=== PATIENT | female | born 1960 | race African-American/Black ===

== ENCOUNTER 2016-07-07 22:03 | Inpatient (IN) | payer MEDICAID ==
[~2016-07-07] VITALS: Ht 160 cm; Wt 56.4 kg
[~2016-07-07 22:03] MED LIST: ATACAND HCT 32-1 TAB PO; GLUCOPHAGE1000 MG PO; GLUCOTROL XL 5 M5 MG PO; HUMULIN R100 U/ML SQ; KEFLEX500 MG PO; LOPRESSOR50 MG PO; POTASSIUM99 M1 PO
[2016-07-07 23:00] LABS: BASOPHILS 0.4 % (0.0-2.0); EOSINOPHILS 2.3 % (0-7); HEMOGLOBIN 14.6 g/dL (12-16); IMMATURE GRANULOCYTES 0.4 % (0-5); LYMPHOCYTES 22.3 % (15-50); MCH 31.9 pg (26.0-34.0); MCHC 33.2 g/dL (31.0-37.0); MCV 96.3 fL (80.0-100.0); MEAN PLATELET VOLUME 12.2 fL (7.4-10.4); MONOCYTES 10.2 % (2-11); NEUTROPHILS 64.4 % (40-80); PLATELET COUNT 205 10x3/uL (130-400); RBC 4.57 10x6/uL (4.00-5.40); WBC 2.7 10x3/uL (4.8-10.8)
[2016-07-07 23:12] LABS: KETONE - SERUM NEGATIVE (NEGATIVE)
[2016-07-07 23:17] LABS: ALBUMIN 3.5 g/dL (3.4-5.0); ALKALINE PHOSPHATASE 82 U/L (46-116); ALT (SGPT) 20 U/L (10-68); BILIRUBIN - TOTAL 0.25 mg/dL (0.2-1.3); CALC OSMOLALITY 298 mosm/kg (275-300); CALCIUM 8.8 mg/dL (8.5-10.1); CARBON DIOXIDE 30.3 mmol/L (21.0-32.0); CHLORIDE - SERUM 105 mmol/L (98-107); POTASSIUM - SERUM 4.2 mmol/L (3.5-5.1); PROTEIN - SERUM 7.3 g/dL (6.4-8.2); SODIUM 140 mmol/L (136-145); UREA NITROGEN 14 mg/dL (7-18); eGFR NON AFRICAN AMERICAN 60 mL/min (90-120)
[2016-07-07 23:19] LABS: GLUCOSE 437 mg/dL (74-106)
[2016-07-08 01:53] LABS: APPEARANCE HAZY (CLEAR); BILIRUBIN NEGATIVE (NEGATIVE); COLOR YELLOW (YELLOW); GLUCOSE 1000 mg/dL (NEGATIVE); KETONE NEGATIVE (NEGATIVE); LEUKOCYTE ESTERASE 1+ (NEGATIVE); NITRITE NEGATIVE (NEGATIVE); PROTEIN NEGATIVE (NEGATIVE); UROBILINOGEN NORMAL (NORMAL)
[2016-07-08 01:56] LABS: BACTERIA MANY /hpf (NONE SEEN); EPITHELIAL CELLS 0-5 /hpf (0-5); RED CELLS - URINE 0-5 /hpf (0-5); WHITE CELLS - URINE 25-50 /hpf (0-5)
[2016-07-08 06:03] VITALS: BP 167/101; BMI 23.2
--- NOTE | 2016-07-08 07:53 | NUR ---
PT IS ALERT. ASSESSMENT DONE PER FLOWSHEET. NO OTHER NEEDS AT THIS TIME. WILL CONTINUE TO MONITOR.
[2016-07-08 08:00] VITALS: BP 165/99
[2016-07-08 12:00] VITALS: BP 164/93
--- NOTE | 2016-07-08 15:31 | NUR ---
DC TEACHING COMPLETE. NO OTHER NEEDS AT THIS TIME. WILL CONTINUE TO MONITOR.
[2016-07-08 16:00] VITALS: BP 131/85
[2016-07-08 20:38] VITALS: BP 128/81
[2016-07-09 00:11] VITALS: BP 115/72
[2016-07-09 04:40] VITALS: BP 179/83
[2016-07-09 06:39] LABS: BASOPHILS 0 % (0.0-2.0); EOSINOPHILS 0.2 % (0-7); HEMATOCRIT 42.8 % (36.0-48.0); HEMOGLOBIN 14.5 g/dL (12-16); IMMATURE GRANULOCYTES 0.2 % (0-5); LYMPHOCYTES 10.3 % (15-50); MCH 31.5 pg (26.0-34.0); MCHC 33.9 g/dL (31.0-37.0); MEAN PLATELET VOLUME 11.7 fL (7.4-10.4); MONOCYTES 5.3 % (2-11); PLATELET COUNT 222 10x3/uL (130-400); RDW 11.7 % (11.5-14.5)
[2016-07-09 06:53] LABS: WBC 5.6 10x3/uL (4.8-10.8)
[2016-07-09 07:06] LABS: CALC OSMOLALITY 274 mosm/kg (275-300); CARBON DIOXIDE 29.6 mmol/L (21.0-32.0); CHLORIDE - SERUM 100 mmol/L (98-107); CHOL - HDL RATIO 2.2 ratio (2.3-4.1); CHOLESTEROL, TOTAL 169 mg/dL (0-200); CREATININE - SERUM 0.8 mg/dL (0.6-1.3); HDL CHOLESTEROL 76 mg/dL (32-96); LDL CHOLESTEROL 79 mg/dL (0-100); SODIUM 136 mmol/L (136-145); THYROID STIMULATING HORMONE 1.63 uIU/mL (0.36-3.74); TRIGLYCERIDE 71 mg/dL (30-200); UREA NITROGEN 12 mg/dL (7-18); eGFR NON AFRICAN AMERICAN 78 mL/min (90-120)
[2016-07-09 07:07] LABS: GLUCOSE 158 mg/dL (74-106); HEMOGLOBIN A1C 9.4 % (4.8-6.0)
--- NOTE | 2016-07-09 07:37 | NUR ---
PT IS ALERT. ASSESSMENT DONE PER FLOWSHEET. NO OTHER NEEDS AT THIS TIME. WILL CONTINUE TO MONITOR.
[2016-07-09 08:00] VITALS: BP 149/91
[2016-07-09 12:00] VITALS: BP 152/94
[2016-07-09 16:00] VITALS: BP 137/87
--- NOTE | 2016-07-09 18:00 | NUR ---
NO SS OF DISTRESS AT THIS TIME. WILL CONTINUE TO MONITOR.
--- NOTE | 2016-07-09 19:15 | NUR ---
INITIAL ROUNDS MADE. PT SITTING UP IN BED WATCHING TV. DENIES NEEDS OR C/O AT THIS TIME. CALL LIGHT IN REACH. WILL CONT TO MONITOR.
[2016-07-09 20:00] VITALS: BP 164/87
[2016-07-10] VITALS: BP 145/85
--- NOTE | 2016-07-10 03:53 | NUR ---
RECYCLING PROGRAM MANAGER AT BEDSIDE FOR VS. NEEDS ADDRESSED. CALL LIGHT IN REACH. WILL CONT TO MONITOR.
[2016-07-10 04:00] VITALS: BP 159/103
--- NOTE | 2016-07-10 06:43 | NUR ---
PT HAS BEEN CONFUSED THROUGHOUT SHIFT. ATTEMPT TO REORIENT UNSUCCESSFUL. STATES "GOING HOME". AT BEDSIDE STATES SHE IS HALLUCINATING AND NEEDS A BED DOWNSTAIRS IN PSYCHE UNIT.
--- NOTE | 2016-07-10 07:30 | NUR ---
ASSESSMENT COMPLETED. RIGHT FOREARM SL. CONFUSED AND UNSTEADY ON HER FEET. CALLED PTS FAMILY AND ADVISED HER THAT THEY NEED TO HAVE SOMEONE COME SIT WITH PT. SHE SAID SHE WOULD HAVE SOMEONE COME. PT ADVISED TO STAY IN CHAIR OR BED AND TO CALL US WHEN SHE NEEDED UP. BED ALARM IN USE, BUT SHE DOESNT STAY IN BED. WILL MONITOR
--- NOTE | 2016-07-10 07:57 | NUR ---
PATIENT ROAMING HALLWAYS VERY CONFUSED. BOYFRIEND WITH PATIENT BUT DOES NOT HELP. VISITED WITH BOYFRIEND TO KEEPING PATIENT IN ROOM. OTHER FAMILY HAS BEEN CALLED. FALL PRECAUTIONS IN PLACE( MAT, BED ALARM, BRACELET).
[2016-07-10 08:32] VITALS: BP 151/93
--- NOTE | 2016-07-10 08:55 | NUR ---
ATIVAN 1MG IV PUSH GIVEN FOR ANTIETY. TO CT SCAN
--- NOTE | 2016-07-10 09:50 | NUR ---
PT BACK FROM CT SCAN. SEDATED. SR UP WITH CALL LIGHT IN REACH. SANDEE ALARM ON. RESP REG AND EVEN. WILL MONITOR
--- NOTE | 2016-07-10 11:44 | NUR ---
Patient Name: RICHARD ANDINO Admission Status: ER Accout number: [id number] Admission Date: 07-08-2016 : 1960 Admission Diagnosis: Attending: RAQUEL Current LOS: 2 Anticipated DC Date: TO BE DETERMINED Planned Disposition: TO BE DETERMINED Primary Insurance: [place] PRIVATE OPTIONS SELMA Discharge Planning Comments: CM RECEIVED ORDER FOR WALKER AT HOME; CM ATTEMPTED TO MEET WITH PT FOR INITIAL ASSESSMENT OF DISCHARGE NEEDS. PT WAS IN ROOM AND SLEEPING VERY HEAVILY AT APPROXIMATELY 1035 HOURS. CM NOTIFIED BY RT THAT PT HAD BEEN GIVEN A DOSE OF ATIVAN A SHORT TIME AGO. CM TO ATTEMPT ASSESSMENT OF PT AT A LATER TIME. Acetylene Torch Burner: Bayron Abbott
[2016-07-10 12:35] VITALS: BP 145/87
[2016-07-10 13:40] VITALS: Ht 160 cm; Wt 56.4 kg
--- NOTE | 2016-07-10 13:44 | NUR ---
PT SLEEPING, V/S STABLE. AROUSES BUT GOES RIGHT BACK TO SLEEP.
--- NOTE | 2016-07-10 15:13 | NUR ---
TALKING WITH CASE MJR. DENIES ANY NEEDS. CALL LIGHT IN REACH WITH SR UP. NO NEEDS VOICED
[2016-07-10 15:55] VITALS: BP 143/90
--- NOTE | 2016-07-10 16:44 | NUR ---
Patient Name: RICHARD ANDINO Admission Status: ER Accout number: [id number] Admission Date: 07-08-2016 : 1960 Admission Diagnosis: Attending: RAQUEL Current LOS: 2 Anticipated DC Date: Planned Disposition: Home Primary Insurance: [place] PRIVATE OPTIONS SELMA Discharge Planning Comments: * Is the patient Alert and Oriented? Yes 0 * How many steps to enter\exit or inside your home? 4 0 * PCP NONE 0 * Pharmacy [facility]. 0 * Preadmission Environment Home with Family 0 * ADLs Independent 0 * Equipment None 0 * Other Equipment [employer] - MEDICAL EQUIPMENT PROVIDER PREFERENCE 0 * List name and contact numbers for known caregivers / representatives who currently or will assist patient after discharge: FLOR VILLAGOMEZDIEGO, DTR, 0 * Community resources currently utilized None 0 * Please name any agencies selected above. NONE 0 * Additional services required to return to the preadmission environment? No 0 * Can the patient safely return to the preadmission environment? Yes 0 * Has this patient been hospitalized within the prior 30 days at any hospital? No 0 CM MET WITH PT IN ROOM TO DISCUSS DISCHARGE PLANNING AND NEEDS. PT REPORTS LIVING AT HOME INDEPENDENTLY WITH HER FRIEND, SREE. PT HAS NO MEDICAL EQUIPMENT AND NO OUTSIDE SERVICES ASSISTING IN THE HOME. CM DISCUSSED AVAILABILITY OF HOME HEALTH, REHAB SERVICES AND MEDICAL EQUIPMENT. PT DENIES DISCHARGE NEEDS, REPORTS HER DAUGHTER OR SREE WILL PICK HER UP FOR DISCHARGE HOME. CM DISCUSSED ORDER FOR WALKER, PT WOULD LIKE THE WALKER FROM [facility]. PT HAS NO PRIMARY CARE DOCTOR. CM PROVIDED AND DISCUSSED CONTACT INFORMATION FOR HER PEDIATRIC LPN AND SECURITY TECH. CM CALLED [facility], , SPOKE TO GREYSON AND FAXED REFERRAL TO [facility] AT [phone], REQUESTED HOSPITAL DELIVERY FOR THE WALKER. PT PLANS TO DISCHARGE HOME WITH HER FRIEND, SREE. PT HAS NO PRIMARY CARE DOCTOR AND WILL FOLLOW UP WITH HER PEDIATRIC LPN TO ASSIST IN FINDING PRIMARY CARE. Ornamental Iron Worker: Bayron Abbott
--- NOTE | 2016-07-10 18:12 | NUR ---
LYING QUIETLY WITH EYES CLOSED. WAKES EASILY, BUT FALLS RIGHT BACK TO SLEEP.. SR UP WITH CALL LIGHT IN REACH. WILL MONITOR
--- NOTE | 2016-07-10 19:59 | NUR ---
RECEIVED PT IN BED SNORING UNLABORED RESP SKIN W/D COLOR WNL NAD NOTED BED IN LOW POSITION CALL LIGHT IN REACH WILL CONTINUE TO MONITOR
[2016-07-10 21:37] VITALS: BP 135/83
--- NOTE | 2016-07-11 02:40 | NUR ---
ASSESSMENT COMPLETE, SLEEPING ON RIGHT SIDE, BED IS LOW, SRX2, BED ALARM ON, CALL LIGHT IN REACH, WILL CONTINUE TO MONITOR
[2016-07-11 05:54] VITALS: BP 171/102
[2016-07-11 06:02] VITALS: BP 148/88
[2016-07-11 08:00] VITALS: BP 144/72
--- NOTE | 2016-07-11 08:01 | NUR ---
ASSESSMENT COMPLETED. PT SLEEPING BUT AWAKES EASILY. RIGHT FA SL. CALL LIGHT IN REACH WITH SR UP. WILL MONITOR. PT CONFUSED AT TIMES. WILL MONITOR
[2016-07-11 08:23] LABS: IMMUNOGLOBULIN E 23 IU/mL (0-100)
[2016-07-11 12:00] VITALS: BP 145/87
--- NOTE | 2016-07-11 14:33 | NUR ---
AMBULATING WITH PT. GAIT UNSTEADY. BACK TO BEDSIDE CHAIR, WITH ALARM ON. WILL MONITOR.
--- NOTE | 2016-07-11 15:21 | NUR ---
Patient Name: RICHARD ANDINO Encounter No: [id number] : 1960 Primary Insurance: [place] PRIVATE OPTIONS SELMA Anticipated DC Date: Planned Disposition: Home DCP follow-up note: CM RECEIVED DETAILED WRITTEN ORDER FOR PT'S WALKER. CM PAGED AND SPOKE TO DR. BEAVER WHO INSTRUCTED CM TO PLACE ORDER ON FRONT OF CHART AND HE WILL SIGN IN THE MORNING. ORDER TO FRONT OF CHART FOR 'S SIGNATURE. CM SPOKE TO JACINTA MONREAL, PT'S PM TECHNICIAN WHO REPORTED THAT SHE HAS HAD PT ON SOCIAL WORK AND CASE MANAGEMENT SERVICES AND PT IS NON COMPLIANT AND PROBABLY WILL NOT AGREE TO FUTHER CASE MANAGEMENT WITH [employer]. JACINTA REPORTS SHE WILL SPEAK TO PT LATER TODAY IN ATTEMPT TO HELP. JACINTA REPORTS PT LIVES WITH SERE WHO ASSISTS PT WITH CARE NEEDED. CM MET WITH PT IN ROOM, [facility] HAD DELIVERED WALKER TO ROOM FOR DISCHARGE HOME. PT REPORTS PLAN TO DISCHARGE HOME WITH SREE WHO ASSISTS WITH HER CARE NEEDED. PT DENIES NEED OF REHAB SERVICES. PT HAS NO PRIMARY CARE DOCTOR TO SIGN ANY HOME HEALTH ORDERS. PT HAS CONTACT INFORMATION FOR HER PM TECHNICIAN AND PYROTECHNIST IF NEEDED. PT REPORTS SEEING A LITTLE BOY, ABOUT 2 YEARS OLD, CLIMBING ON HER BED AND WALKING AROUND THE ROOM. CM DID NOT SEE THE CHILD. PT SEEMED DISTRACTED AND POINTING, ASKING CM IF HE SAW THE BABY. PT'S SISTER, ,PATRICIA, IN ROOM WHO REPORTS THIS IS NOT NORMAL FOR PATIENTS BEHAVIOR. KELLY VERIFIED THAT PT LIVES WITH SREE WHO ASSISTS IN PT'S CARE. PT AND KELLY VERIFIED THAT VICENTE COLUNGA IS PT'S COUSIN AND IT IS OK TO SHARE INFORMATION WITH HER REGARDING PT'S CARE. VICENTE COLUNGA, . PT DENIES SEEING OTHER PEOPLE OTHER THAN THE BABY AND CM. CM NOTIFIED BEDSIDE NURSE. CM TO FAX WALKER ORDER TO [facility] AFTER OBTAINING DR. BEAVER'S SIGNATURE TOMORROW. Bayron Abbott, CASE MANAGEMENT
[2016-07-11 16:00] VITALS: BP 145/85
--- NOTE | 2016-07-11 18:02 | NUR ---
PT VERY AGGITATED AT THIS TIME UNABLE TO GIVE ATIVAN PT REFUSING VEWRY CONFUSED KNUCKLER DOING ONE ON ONE WITH PT UNTIL FAMILY CAN GET HERE
--- NOTE | 2016-07-11 19:15 | NUR ---
INITIAL ROUNDS MADE. PT SITTING UP IN BED WATCHING TV. NO NEEDS OR C/O VOICED AT THIS TIME. CALL LIGHT IN REACH. WILL CONT TO MONITOR. SEE FLOWSHEET FOR ASSESSMENT.
[2016-07-11 20:00] VITALS: BP 142/84
--- NOTE | 2016-07-12 04:01 | NUR ---
SCOREBOARD OPERATOR AT BEDSIDE FOR VS. NEEDS ADDRESSED AT THIS TIME. CALL LIGHT IN REACH. WILL CONT TO MONITOR.
[2016-07-12 08:00] VITALS: BP 126/79
--- NOTE | 2016-07-12 09:37 | NUR ---
Patient Name: RICHARD ANDINO Encounter No: [id number] : 1960 Primary Insurance: [place] PRIVATE OPTIONS SELMA Anticipated DC Date: Planned Disposition: Home DCP follow-up note: CM FAXED ORDER FOR WALKER TO DR. BEAVER'S OFFICE FOR SIGNATURE, FAX [phone]. WALKER HAS BEEN DELIVERED TO PT'S HOSPITAL ROOM. PT PLANS TO DISCHARGE HOME WITH HER FRIEND, SREE. CM TO FOLLOW AND ASSIST NEEDED. Bayron Abbott, CASE MANAGEMENT
--- NOTE | 2016-07-12 10:50 | NUR ---
UP TO CHAIR WITH BED ALRM ON.
[2016-07-12 12:00] VITALS: BP 117/86
--- NOTE | 2016-07-12 14:35 | NUR ---
AMBULATES HALLWAY WITH PT ASSIST.
[2016-07-12 16:09] VITALS: BP 114/76
[2016-07-12 20:00] VITALS: BP 110/69
--- NOTE | 2016-07-12 20:00 | NUR ---
PT UP IN BEDSIDE CHAIR. ALERT/DISORIENTED. HER BOYFRIEND HAS ARRIVED AND PLANS TO STAY THE NIGHT WITH HER. PIV TO RFA SALINE LOCKED. NONLABORED RESPIRATIONS ON ROOM AIR. SEE ASSESSMENT. CPOC.
--- NOTE | 2016-07-12 22:45 | NUR ---
PT AWAKE AND LYING BESIDE HER BOYFRIEND. ASKING WHEN SHE IS GOING HOME, WHERE IS SHE AT. DISORIENTED. POINTED OUT THAT BOYFRIEND IS WITH HER. HS MEDS GIVEN. MEDICATED WITH ATIVAN 1MG SIVP TO DECREASE RESTLESSNESS. FSBS 236, SLIDING SCALE INSULIN GIVEN. BOX ALARM IN PLACE. BOYFRIEND AT BEDSIDE.
--- NOTE | 2016-07-13 05:52 | NUR ---
PT WOULD NOT LET PROGRAM DIRECTOR AIR TALENT TAKE MIDNIGHT OR 0400 VITAL SIGNS. SHE DID ALLOW NURSE TO INFUSE AM IV ABT, BUT THEN IT WAS SALINE LOCKED SOON PIGGYBACK COMPLETED.
[2016-07-13 09:09] VITALS: BP 113/78
[2016-07-13] MEDS ORDERED: LEVAQUIN500 MG PO (10:03)
[2016-07-13] MEDS ORDERED: GLUCOTROL XL 1010 MG PO (10:08)
[2016-07-13] MEDS ORDERED: FLORANEX / LACT1 TAB PO (10:08)
[2016-07-13] MEDS ORDERED: PROTONIX40 MG PO (10:08)
[2016-07-13] MEDS ORDERED: PROAIR HFA8.5 GM INH (10:08)
[2016-07-13] MEDS ORDERED: FLUTICASONE PRO16 GM NASAL (10:10)
[2016-07-13] MEDS ORDERED: STERAPRED DS 1010 MG PO (10:18)
[2016-07-13 12:29] VITALS: BP 132/83
--- NOTE | 2016-07-13 15:11 | NUR ---
DISCHARGE PAPERS SIGNED AND TEACHING PROVIDED. PT SEEMS COGNITIVELY DELAYED BUT VERBALIZED UNDERSTANDING AND HER SPOUSE IS ON THE WAY TO PICK HER UP. D/C PTS R.FA PIV WITH CATHETER TIP FULLY INTACT. PT DENIES ANY FURTHER NEEDS AT THIS TIME. CL IN REACH, WILL CTM.
--- NOTE | 2016-07-14 10:04 | NUR ---
LATE ENTRY FROM 07/13/16 AT 1454 PM FROM CRISTOBAL, RN, CM: Patient Name: RICHARD ANDINO Encounter No: [id number] : 1960 Primary Insurance: [place] PRIVATE OPTIONS SELMA Anticipated DC Date: 07-13-2016 Planned Disposition: Home DCP follow-up note: CM MET WITH PATIENT REGARDING DC PLAN. SHE WAS ORIENTED X3 AND ABLE TO ANSWER ALL QUESTIONS CORRECTLY. SHE STATED SHE WILL GO HOME WITH HER SO SREE AND HE WILL DRIVE HER HOME AT DC. SHE STATED WALKER WAS DELIVERED TO HER ROOM AND THAT SHE HAS HOME OXYGEN. WE DISCUSSED HH SERVICES AND THAT DR BEAVER ENTERED ORDER FOR HH. SHE STATED THAT SHE WOULD LIKE TO "HOLD OFF AT THIS TIME". STATED SHE HAS HAD "HOME NURSE BEFORE" AND THAT SHE HAS A "PUPPY THAT BITES AND HAS BIT HOME NURSE BEFORE". ROSEMARIE PLACED CALL TO PT'S SISTER TO INFORM OF DC. SHE AGREED THAT SREE WILL DRIVE HER HOME AND THAT PRIMARY RN HAD CALLED HER TO INFORM OF DC ORDERS. ROSEMARIE PLACED CALL TO JACINTA MONREAL CM WITH [facility], TO INFORM OF DC ORDER AND THAT PT REFUSED HH SERVICES SO THAT SHE CAN FOLLOW UP WITH PATIENT ONCE SHE IS HOME TO ASSESS FOR FUTURE NEEDS. PT VOICED NO DC NEEDS. Ana Ibarra RN, CM
== END 2016-07-13 15:39 | disposition home or self-care (01) | DRG 191 ==
LOC: D.ER 22:03 → D.M2 07-08 04:54
PROVIDERS: Family Medicine; Internal Medicine Pulmonary Disease; Nurse Practitioner Acute Care; ADMIT Family Medicine
DX: J44.1 Chronic obstructive pulmonary disease with (acute) exacerbation (principal); I69.954 Hemiplegia and hemiparesis following unspecified cerebrovascular disease affecting left non-dominant side; N39.0 Urinary tract infection, site not specified; J45.909 Unspecified asthma, uncomplicated; R55 Syncope and collapse; W19.XXXA Unspecified fall, initial encounter; Z74.09 Other reduced mobility; E11.65 Type 2 diabetes mellitus with hyperglycemia; Z79.4 Long term (current) use of insulin; B96.20 Unspecified Escherichia coli [E. coli] as the cause of diseases classified elsewhere; I10 Essential (primary) hypertension; G47.33 Obstructive sleep apnea (adult) (pediatric); R91.1 Solitary pulmonary nodule; Z72.89 Other problems related to lifestyle; R41.0 Disorientation, unspecified; R06.1 Stridor; Z72.0 Tobacco use

== ENCOUNTER 2017-05-16 12:56 | Emergency (ER) | payer MEDICAID ==
[2016-07-10 13:40] VITALS: BMI 22.5
[~2017-05-16 12:56] MED LIST changes: +FLORANEX / LACT1 TAB PO; +FLUTICASONE PRO16 GM NASAL; +GLUCOTROL XL 1010 MG PO; +LEVAQUIN500 MG PO; +PROAIR HFA8.5 GM INH; +PROTONIX40 MG PO; +STERAPRED DS 1010 MG PO
[2017-05-16 14:20] LABS: BASOPHILS 0.2 % (0-2); EOSINOPHILS 0.5 % (0-7); HEMATOCRIT 48.5 % (36.0-48.0); HEMOGLOBIN 15.9 g/dL (12-16); IMMATURE GRANULOCYTES 0.5 % (0-5); LYMPHOCYTES 9.4 % (15-50); MCH 31.5 pg (26.0-34.0); MCHC 32.8 g/dL (31.0-37.0); MEAN PLATELET VOLUME 11.9 fL (7.4-10.4); MONOCYTES 8.8 % (2-11); NEUTROPHILS 80.6 % (40-80); PLATELET COUNT 182 10x3/uL (130-400); RBC 5.05 10x6/uL (4.00-5.40); RDW 11.8 % (11.5-14.5); WBC 5.6 10x3/uL (4.8-10.8)
[2017-05-16 15:12] LABS: ALKALINE PHOSPHATASE 108 U/L (46-116); BILIRUBIN - TOTAL 0.42 mg/dL (0.2-1.3); CARBON DIOXIDE 31.3 mmol/L (21.0-32.0); CHLORIDE - SERUM 99 mmol/L (98-107); POTASSIUM - SERUM 4.4 mmol/L (3.5-5.1); PROTEIN - SERUM 7.4 g/dL (6.4-8.2); SODIUM 138 mmol/L (136-145); UREA NITROGEN 4 mg/dL (7-18)
[2017-05-16 15:31] LABS: CALC OSMOLALITY 272 mosm/kg (275-300); GLUCOSE 93 mg/dL (74-106)
[2017-05-16 15:32] LABS: ALT (SGPT) 4 U/L (10-68); eGFR NON AFRICAN AMERICAN 60 mL/min (90-120)
== END 2017-05-16 16:55 | disposition home or self-care (01) ==
LOC: D.ER 12:56
PROVIDERS: Emergency Medicine
DX: I10 Essential (primary) hypertension (principal); E11.9 Type 2 diabetes mellitus without complications

== ENCOUNTER 2020-07-23 13:02 | Inpatient (IN) | payer MEDICAID ==
[~2020-07-23] VITALS: Ht 160 cm; Wt 65.8 kg
[2020-07-23 13:31] LABS: BASOPHILS 0.2 % (0-2); HEMATOCRIT 48.1 % (36.0-48.0); HEMOGLOBIN 13.9 g/dL (12-16); IMMATURE GRANULOCYTES 0.5 % (0-5); LYMPHOCYTE ABS# 1.32 10x3/uL (1.18-3.74); LYMPHOCYTES 20.6 % (15-50); MCH 31.8 pg (26.0-34.0); MCHC 28.9 g/dL (31.0-37.0); MCV 110.1 fL (80.0-100.0); MEAN PLATELET VOLUME 14.5 fL (7.4-10.4); MONOCYTES 8.7 % (2-11); PLATELET COUNT 192 10x3/uL (130-400); RBC 4.37 10x6/uL (4.00-5.40); RDW 15.8 % (11.5-14.5); WBC 6.4 10x3/uL (4.8-10.8)
[2020-07-23 13:36] LABS: BILIRUBIN NEGATIVE (NEGATIVE); KETONE NEGATIVE (NEGATIVE); NITRITE NEGATIVE (NEGATIVE); UROBILINOGEN NORMAL mg/dL (< 2)
[2020-07-23 13:37] LABS: BACTERIA MODERATE HPF (NONE SEEN); SQUAMOUS EPITHELIAL 0-5 HPF (0-4); WHITE CELLS - URINE 25-50 HPF (0-4)
[2020-07-23 13:50] LABS: APTT 25.4 SECONDS (22.8-39.4); INR 1.1 (0.85-1.17); PROTIME 13.2 SECONDS (11.6-15.0)
[2020-07-23 13:52] LABS: D-DIMER-QUANTITATIVE 1.03 ug/mLFEU (0.20-0.54)
[2020-07-23 14:00] LABS: ALBUMIN 2.4 g/dL (3.4-5.0); ALKALINE PHOSPHATASE 109 U/L (30-120); ALT (SGPT) 47 U/L (10-68); BILIRUBIN - TOTAL 0.26 mg/dL (0.2-1.3); CALCIUM 8.6 mg/dL (8.5-10.1); CARBON DIOXIDE 35.2 mmol/L (21.0-32.0); CKMB 0.5 U/L (0.0-3.6); CREATINE KINASE 365 UL (21-215); MAGNESIUM - SERUM 2.5 mg/dL (1.8-2.4); POTASSIUM - SERUM 4.2 mmol/L (3.5-5.1); PRO BNP 73 pg/mL (0-125); SODIUM 154 mmol/L (136-145); TROPONIN-I < 0.017 ng/mL (0.000-0.060); UREA NITROGEN 54 mg/dL (7-18); eGFR NON AFRICAN AMERICAN 59 mL/min (90-120)
[2020-07-23 14:01] LABS: CALC OSMOLALITY 331 mosm/kg (275-300); GLUCOSE 309 mg/dL (74-106)
[2020-07-23 14:02] LABS: CHLORIDE - SERUM 116 mmol/L (98-107)
--- NOTE | 2020-07-23 14:03 | NUR ---
CRITICAL LAB: CHLORIDE [address] DR HARRIS AND TAM RENEE NOTIFIED
--- NOTE | 2020-07-23 16:17 | NUR ---
CALLED REPORT TO JENNIFER AT [phone]. ALL QUESTIONS ANSWERED.
[2020-07-23] MEDS ORDERED: MELATONIN 3 MG1 TAB PO (17:36)
[2020-07-23] MEDS ORDERED: LANTUS INS100 UNITS/ SC ×2 (17:38→17:39)
[2020-07-23] MEDS ORDERED: ZOFRAN4 MG PO (17:40)
[2020-07-23] MEDS ORDERED: LOPRESSOR25 MG PO (17:41)
[2020-07-23] MEDS ORDERED: ATIVAN1 MG PO (17:43)
[2020-07-23] MEDS ORDERED: ULTRAM50 MG PO (17:44)
[2020-07-23] MEDS ORDERED: CELEXA20 MG PO (17:52)
[2020-07-23 18:08] VITALS: BP 102/65; BMI 25.7
[2020-07-23] MEDS ORDERED: GLUCERNA 1.5 C237 M1 GT (18:40)
--- NOTE | 2020-07-23 19:11 | NUR ---
LETHARGIC WITH EXPRESSIVE APHASIA. SKIN INTACT WITH ERRYTHEMA NOTED TO BILATERAL TOES WITH ELONGATED TOE NAILS NOTED. PEG TUBE INTACT TO ABDOMEN WITH NO S/S OF INFECTION NOTED. LOTION APPLIED TO SKIN WITH FALL PRECAUTIONS IN PLACE.
--- NOTE | 2020-07-23 19:45 | NUR ---
RECEIVED BEDSIDE REPORT. PT LAYING IN BED ORIENTATED TO SELF ONLY, GARBLED SPEECH. BILAT LOWER EXTREM CONTRACTURES. PEG TUBE IN PLACE. BEDFAST, TOTAL CARE. BED ALARM ON, CL IN REACH. WILL CONTINUE TO MONITOR.
[2020-07-23 21:24] VITALS: BP 96/67
--- NOTE | 2020-07-23 21:30 | NUR ---
ASSISTED PT WITH BED BATH. CHANGED DRSG TO PEG TUBE AND INITIATED TUBE FEED. INSERTED 22G PIV INTO RIGHT FOREARM X1 ATTEMPT, FLUSHES WELL WITH GOOD RETURN. HOSPITALITY TEAM MEMBER ASSISTED WITH ORAL CARE. PT TOLERATED WELL. BED LOW, ALARM ON, CL IN REACH.
[2020-07-24 05:46] VITALS: BP 114/55
[2020-07-24 06:44] LABS: ALBUMIN 2.2 g/dL (3.4-5.0); ALKALINE PHOSPHATASE 98 U/L (30-120); ALT (SGPT) 38 U/L (10-68); BILIRUBIN - TOTAL 0.16 mg/dL (0.2-1.3); CALCIUM 8.2 mg/dL (8.5-10.1); CARBON DIOXIDE 32.8 mmol/L (21.0-32.0); CKMB 0.6 U/L (0.0-3.6); CREATININE - SERUM 0.9 mg/dL (0.6-1.3); GLUCOSE 307 mg/dL (74-106); POTASSIUM - SERUM 4.2 mmol/L (3.5-5.1); PROTEIN - SERUM 6.5 g/dL (6.4-8.2); SODIUM 157 mmol/L (136-145); TROPONIN-I < 0.017 ng/mL (0.000-0.060); eGFR NON AFRICAN AMERICAN 67 mL/min (90-120)
[2020-07-24 06:55] LABS: CALC OSMOLALITY 332 mosm/kg (275-300); UREA NITROGEN 40 mg/dL (7-18)
[2020-07-24 06:56] LABS: CHLORIDE - SERUM 121 mmol/L (98-107); CREATINE KINASE 259 UL (21-215)
[2020-07-24 09:15] VITALS: BP 105/68
[2020-07-24 09:18] LABS: BASOPHILS 0.2 % (0-2); EOSINOPHILS 4.2 % (0-7); HEMATOCRIT 45.5 % (36.0-48.0); HEMOGLOBIN 13.3 g/dL (12-16); IMMATURE GRANULOCYTES 0.2 % (0-5); LYMPHOCYTE ABS# 1.33 10x3/uL (1.18-3.74); LYMPHOCYTES 23.5 % (15-50); MCH 32.3 pg (26.0-34.0); MCHC 29.2 g/dL (31.0-37.0); MCV 110.4 fL (80.0-100.0); MONOCYTES 16.1 % (2-11); NEUTROPHIL ABS# 3.16 10x3/uL (1.56-6.13); NEUTROPHILS 55.8 % (40-80); PLATELET COUNT 138 10x3/uL (130-400); RBC 4.12 10x6/uL (4.00-5.40); RDW 15.4 % (11.5-14.5); WBC 5.7 10x3/uL (4.8-10.8)
[2020-07-24 13:50] VITALS: BP 117/67
[2020-07-24 14:36] VITALS: Ht 160 cm; Wt 65.8 kg
[2020-07-24 18:34] VITALS: BP 116/64
--- NOTE | 2020-07-24 19:44 | NUR ---
PATIENT RESTING IN BED WITH NO S/S OF DISTRESS AND DENIES NEEDS AT THIS TIME. BED IN LOWEST POSITION AND CALL LIGHT IN REACH. IV INFUSING TO LEFT FA. NO REDNESS, SWELLING, OR PAIN NOTED. ENCOURAGED PATIENT TO CALL WITH NEEDS.
[2020-07-24 20:00] VITALS: BP 106/70
--- NOTE | 2020-07-24 20:33 | NUR ---
ADMINISTERED MEDS PER ORDERS. PATIENT JUAN MIGUEL WELL. ENCOURAGED TO CALL WITH NEEDS.
[2020-07-25] VITALS: BP 108/63
--- NOTE | 2020-07-25 01:00 | NUR ---
CHANGED PATIENT'S TUBE FEEDING BAGS
[2020-07-25 04:00] VITALS: BP 105/74
[2020-07-25 07:28] LABS: BASOPHILS 0.2 % (0-2); EOSINOPHILS 3.9 % (0-7); HEMATOCRIT 43.3 % (36.0-48.0); HEMOGLOBIN 12.6 g/dL (12-16); IMMATURE GRANULOCYTES 0.2 % (0-5); LYMPHOCYTE ABS# 0.95 10x3/uL (1.18-3.74); LYMPHOCYTES 20.3 % (15-50); MCH 31.9 pg (26.0-34.0); MCHC 29.1 g/dL (31.0-37.0); MCV 109.6 fL (80.0-100.0); MEAN PLATELET VOLUME 14.4 fL (7.4-10.4); MONOCYTES 10.9 % (2-11); NEUTROPHIL ABS# 3.01 10x3/uL (1.56-6.13); NEUTROPHILS 64.5 % (40-80); RBC 3.95 10x6/uL (4.00-5.40); WBC 4.7 10x3/uL (4.8-10.8)
[2020-07-25 07:31] LABS: PLATELET COUNT 170 10x3/uL (130-400)
[2020-07-25 07:53] LABS: ALBUMIN 2.4 g/dL (3.4-5.0); ALKALINE PHOSPHATASE 111 U/L (30-120); ALT (SGPT) 36 U/L (10-68); BILIRUBIN - TOTAL 0.14 mg/dL (0.2-1.3); CALCIUM 8.6 mg/dL (8.5-10.1); CARBON DIOXIDE 32.5 mmol/L (21.0-32.0); CREATININE - SERUM 0.8 mg/dL (0.6-1.3); POTASSIUM - SERUM 4.2 mmol/L (3.5-5.1); PROTEIN - SERUM 6.8 g/dL (6.4-8.2); SODIUM 153 mmol/L (136-145); UREA NITROGEN 31 mg/dL (7-18); eGFR NON AFRICAN AMERICAN 77 mL/min (90-120)
[2020-07-25 07:55] LABS: CALC OSMOLALITY 318 mosm/kg (275-300); GLUCOSE 250 mg/dL (74-106)
[2020-07-25 07:56] LABS: CHLORIDE - SERUM 117 mmol/L (98-107)
--- NOTE | 2020-07-25 09:20 | NUR ---
GAVE PATIENT MEDS THROUGH PEG TUBE AT THIS TIME. FLUSHES WITH NO PROBLEMS. RESIDUAL 0 ML. IV INTACT. CALL LIGHT WITHIN REACH.
[2020-07-25 10:07] VITALS: BP 128/76
--- NOTE | 2020-07-25 12:30 | NUR ---
PATIENT IN BED WITH NO COMPLAINTS. CHANGED AND REPOSITIONED. RESIDUAL 0 ML AT THIS TIME. BSCDS ON AND WORKING. CALL LIGHT WITHIN REACH.
[2020-07-25 18:03] VITALS: BP 142/77
--- NOTE | 2020-07-25 18:54 | NUR ---
RESIDUAL IS 0 ML AT THIS TIME. PATIENT IN BED WITH EYES OPEN. IV INTACT. PEG INTACT. CALL LIGHT WITHIN REACH.
[2020-07-25 20:00] VITALS: BP 134/83
[2020-07-26 00:27] VITALS: BP 121/76
--- NOTE | 2020-07-26 03:00 | NUR ---
I have reviewed this patient and I concur with the Shift Assessment completed by the Licensed Practical Nurse today this shift.
[2020-07-26 04:00] VITALS: BP 119/53
[2020-07-26 06:25] LABS: BASOPHILS 0.1 % (0-2); EOSINOPHILS 0.6 % (0-7); HEMATOCRIT 46.6 % (36.0-48.0); HEMOGLOBIN 13.9 g/dL (12-16); IMMATURE GRANULOCYTES 0.9 % (0-5); LYMPHOCYTE ABS# 1.18 10x3/uL (1.18-3.74); LYMPHOCYTES 13.4 % (15-50); MCH 32.4 pg (26.0-34.0); MCHC 29.8 g/dL (31.0-37.0); MCV 108.6 fL (80.0-100.0); MEAN PLATELET VOLUME 14.7 fL (7.4-10.4); NEUTROPHIL ABS# 6.69 10x3/uL (1.56-6.13); PLATELET COUNT 159 10x3/uL (130-400); RBC 4.29 10x6/uL (4.00-5.40); RDW 15.1 % (11.5-14.5)
[2020-07-26 06:27] LABS: ALBUMIN 2.5 g/dL (3.4-5.0); ANION GAP 13.2 mmol/L (8-16); BILIRUBIN - TOTAL 0.16 mg/dL (0.2-1.3); CARBON DIOXIDE 28.2 mmol/L (21.0-32.0); CREATININE - SERUM 0.9 mg/dL (0.6-1.3); POTASSIUM - SERUM 4.4 mmol/L (3.5-5.1); PROTEIN - SERUM 7.4 g/dL (6.4-8.2); WBC 8.8 10x3/uL (4.8-10.8)
[2020-07-26 08:35] VITALS: BP 136/77
--- NOTE | 2020-07-26 09:02 | NUR ---
PATIENT IS WITHOUT SIGNS OF DISTRESS.DOOR OPEN
--- NOTE | 2020-07-26 10:10 | NUR ---
PATIENT BLOOD SUGAR IS 411, CALLED DR CHANG, PATIENT HAS D5 RUNNING ASKED TO DC. PATIENT NOW HAS NS AT 50ML/HR. C/O ABD PAIN, CLEANED PEG AREA AND PLACED WARM PACK ON PATIENT. ZACARIAS WITH PLAN OF CARE
--- NOTE | 2020-07-26 11:43 | NUR ---
ADMINISTER 12U OF INSULIN PER SLIDING SCALE. PATIENT BLOOD SUGAR IMPROVING, ASSISTED PROFESSOR OF FLORICULTURE WITH TOTAL CARE AND LINEN CHANGE. NO OTHER NEEDS AT THIS TIME. CONTINUE WITH PLAN OF CARE
[2020-07-26 12:52] VITALS: BP 110/71
--- NOTE | 2020-07-26 13:04 | NUR ---
PATIENT SLEEP IN BED, EASILY AWAKENED, CHECKED RESIDUAL, HAVE 5ML IN SYRINGE, WILL RECHECK IN A COUPLE OF HOURS, NO SIGNS OF DISTRESS, CONTINUE WITH PLAN OF CARE
--- NOTE | 2020-07-26 16:09 | NUR ---
Nutrition Follow-up: Tolerated TF at goal rate. TF order: Glucerna 1.5 @ 50mL/hr + H2O @ 30mL/hr = 1800kcal, 99gms protein, 1631mL free water. Last BM: 07/25/20 Wt: 145# (07/24/20) Meds noted: NS@50, lantus, SSI, probiotics, abx Labs noted: BUN 26(H), Glu 403(H), POC Glu 411(H), POC Glu 332(H) RD will follow-up 07/29/20.
[2020-07-26 17:30] VITALS: BP 144/74
--- NOTE | 2020-07-26 19:00 | NUR ---
BEDSIDE REPORT RECEIVED AND CARE OF PT ASSUMED. PT LYING IN LOW MCDANIEL'S POSITION WITH EYES CLOSED. PEG TUBE PATENT WITH GLUCERNA 1.5 INFSING AT 50 ML/HR. IV TO RIGHT FA PATENT WITH NS INFUSING AT 50 ML/HR. O2 IN USE VIS NC AT 2L. WILL MONITOR FOR NEEDS.
--- NOTE | 2020-07-26 22:00 | NUR ---
BEDPADS CHANGED DUE TO INCONTINCE AND SENG CARE PERFORMED. PT TURNED TO RIGHT SIDE PER TURN SCHEDULE AND PROPPED WITH PILLOWS. POSITIONED FOR COMFORT WITH PILLOW BETWEEN KNEES. SIDE RAILS UP X2 FOR SAFETY. WILL CONTINUE TO MONITOR FOR NEEDS.
--- NOTE | 2020-07-26 22:04 | NUR ---
HS MEDICATIONS GIVEN. FSBS 161 THIS CHECK REQUIRING COVERAGE WITH 4 UNITS OF INSULIN PER SLIDING SCALE.
--- NOTE | 2020-07-27 01:15 | NUR ---
BEDPADS CHANGED DUE TO INCONTINENCE. SENG CARE PERFORMED. PT TURNED ONTO LEFT SIDE PER TURN SCHEDULE AND POSITIONED FOR COMFORT.
--- NOTE | 2020-07-27 02:22 | NUR ---
CHANGED ALL FEEDING TUBING AND BAGS AND FILLED WITH FRESH GLUCERNA 1.5 AND WATER FOR FLUSH. PT HAD 50 ML RESIDUAL. FLUSHED PEG TUBE WITH 50 ML WATER. RE-STARTED FEEDING VIA PUMP AT 50 ML/HR PER ORDER.
[2020-07-27 04:00] VITALS: BP 132/72
--- NOTE | 2020-07-27 05:35 | NUR ---
CHANGED ALL BEDDING AND GOWN DUE TO INCONTINENCE. SENG CARE PERFORMED. TURNED PT ONTO RIGHT SIDE PER TURN SCHEDULE. PLACED PILLOW BETWEEN KNEES FOR COMFORT. HEEL PROTECTORS IN PLACE ON BOTH FEET. HOB AT 45 DEGREES PER ORDER.
[2020-07-27 08:52] VITALS: BP 114/76
--- NOTE | 2020-07-27 09:40 | NUR ---
PATIENT REQUESTING WATER THIS MORNING, SPOKE TO UNIVERSITY LIBRARIAN IN REGARDS TO ALLOWING PATIENT TO DRINK FOR FEAR OF ASPIRATION, PT HAS HX OF STROK AND IS FLACCID ON RT SIDE INCLUDING MOUTH, SHE HAS TO BE SUCTIONED REGULARLY, ASKED UNIVERSITY LIBRARIAN TO USE MOUTH SWABS INSTEAD UNTIL FURTHER EVALUATED BY SPEECH
[2020-07-27 13:07] VITALS: BP 137/88
[2020-07-27 16:53] VITALS: BP 133/76
--- NOTE | 2020-07-27 17:00 | NUR ---
OT NOTE: PT COMPLETED BUE AAROM TOLERATED. PT COMPLETED ORAL HYGIENE WITH TOOTHETTE WITH ESTRELLA Rodriguez. [phone] SYDNIE CAMEJO COTA
--- NOTE | 2020-07-27 17:26 | NUR ---
OT NOTE: PRACTICED SIMPLE GROOMING AND FEEDING WITH USE OF R HAND.. PT DOING BETTER.. ALLOWED TO TAKE A FEW BITES OF APPLE SAUCE PER S.T. BED MOB MAX/TOTAL ASSIST; PROM TO ALL EXT CINDY RIVERA, OTR/L 230-250
[2020-07-27 20:00] VITALS: BP 115/62
--- NOTE | 2020-07-27 20:00 | NUR ---
PT SITTING UP IN BED WITHOUT DISTRESS, CONFUSED AT TIMES. GARBLED SPEECH. LEGS PROPPED AND HEEL PROTECTORS ON BILAT. IV RIGHT FA INFUSING NS @ 50. TF @ 50ML/HR. [facility] CALLED AND UPDATE GIVEN. O2 2L/NC. PT TURNED AT THIS TIME. DENIES OTHER NEEDS. BED ALARM ON. CL IN REACH
--- NOTE | 2020-07-27 22:30 | NUR ---
PT TURNED TO LEFT SIDE AT THIS TIME. DENIES OTHER NEEDS. BED ALARM ON. CL IN REACH
--- NOTE | 2020-07-28 00:30 | NUR ---
PT LYING IN BED SLEEPING WITHOUT DISTRESS, BED ALARM ON. CL IN REACH
--- NOTE | 2020-07-28 01:27 | NUR ---
PT GIVEN CHG BATH AT THIS TIME. LINENS CHANGED. SENG CARE PROVIDED. PT HAD SMALL BM. CLEANSED GTUBE SITE AT THIS TIME, NEW DRESSING APPLIED
[2020-07-28 04:00] VITALS: BP 135/79
[2020-07-28 08:29] VITALS: BP 153/96
[2020-07-28 10:40] LABS: BASOPHILS 0.2 % (0-2); EOSINOPHILS 2.2 % (0-7); HEMATOCRIT 40.1 % (36.0-48.0); HEMOGLOBIN 12.1 g/dL (12-16); IMMATURE GRANULOCYTES 0.3 % (0-5); LYMPHOCYTE ABS# 0.67 10x3/uL (1.18-3.74); LYMPHOCYTES 11.6 % (15-50); MCH 31.6 pg (26.0-34.0); MCHC 30.2 g/dL (31.0-37.0); MCV 104.7 fL (80.0-100.0); MEAN PLATELET VOLUME 14.1 fL (7.4-10.4); MONOCYTES 13.4 % (2-11); NEUTROPHIL ABS# 4.19 10x3/uL (1.56-6.13); NEUTROPHILS 72.3 % (40-80); PLATELET COUNT 150 10x3/uL (130-400); RBC 3.83 10x6/uL (4.00-5.40); RDW 15.1 % (11.5-14.5); WBC 5.8 10x3/uL (4.8-10.8)
[2020-07-28 10:55] LABS: ALBUMIN 2.1 g/dL (3.4-5.0); ALKALINE PHOSPHATASE 107 U/L (30-120); ALT (SGPT) 39 U/L (10-68); BILIRUBIN - TOTAL 0.14 mg/dL (0.2-1.3); CALC OSMOLALITY 302 mosm/kg (275-300); CALCIUM 8.6 mg/dL (8.5-10.1); CARBON DIOXIDE 31.6 mmol/L (21.0-32.0); CHLORIDE - SERUM 110 mmol/L (98-107); CREATININE - SERUM 0.8 mg/dL (0.6-1.3); GLUCOSE 270 mg/dL (74-106); POTASSIUM - SERUM 4.6 mmol/L (3.5-5.1); PROTEIN - SERUM 5.9 g/dL (6.4-8.2); SODIUM 146 mmol/L (136-145); UREA NITROGEN 19 mg/dL (7-18); eGFR NON AFRICAN AMERICAN 77 mL/min (90-120)
[2020-07-28 12:09] VITALS: BP 134/81
--- NOTE | 2020-07-28 13:54 | NUR ---
OT NOTE: PT UP IN BED.. ALERT.. ASKING FOR WATER..S.T EDUCATED THIS THERAPIST ON HOW TO PROVIDE PT WATER SAFELY THROUGH STRAW WITH THE ABILITY TO CONTROL AMOUNT OF FLOW. PERFORMED GRASP EXS WITH R HAND.. PT HAS FAIR AMOUNT OF MOVEMENT IN ELBOW, WRIST , AND FINGERS.. LIMITED SHOULDER MOVEMENT. PRACTICED BRINGING ITEMS TO MOUTH (IMITATION OF SPOON TO MOUTH).. PT STRUGGLES BUT IS ABLE TO PERFORM WITH EXT TIME. UNABLE TO BRING BRUSH/COMB TO TOP OF HEAD DUE TO SHOULDER LIMITATIONS. BED MOB FOR PRESSURE RELIEF AND REPOSITIONED PT FOR COMFORT. CINDY RIVERA, OTR/L [phone]
--- NOTE | 2020-07-28 17:47 | NUR ---
OT NOTE: PT COMPLETED BUE AAROM TOLERATED. PT COMPLETED ORAL CARE WITH DONG WITH ESTRELLA Rodriguez. [phone] THANK YOU,BRETT MCALLISTER
[2020-07-28 17:50] VITALS: BP 150/61
--- NOTE | 2020-07-28 18:45 | NUR ---
I have reviewed this patient and I concur with the Shift Assessment completed by the Licensed Practical Nurse today this shift.
[2020-07-28 20:00] VITALS: BP 127/76
--- NOTE | 2020-07-28 20:00 | NUR ---
PT SITTING UP IN BED WITHOUT DISTRESS, ORIENTED TO SELF. IV RIGHT FA INFUSING NS @ 50. ORDER RECIEVED FROM DR CHANG TO RESTART ROCEPHIN. STATES PT WILL STAY ANOTHER DAY OR TWO AND EXPECTS POSSIBLE DC SUNDAY BACK TO LONG TERM. PT TURNED TO RIGHT SIDE AT THIS TIME. FSBS 163, COVERAGE PER SS. PROVIDED PT WITH WATER WHILE SITTING UP 90 DEGREES AND DROPPED SMALL AMOUNTS IN MOUTH WTIH STRAW. NO S/S OF ASPIRATION AT THIS TIME. TF @ 50ML/HR. PT DENIES NEEDS. BED ALARM ON. CL IN REACH
[2020-07-29] VITALS: BP 116/80
[2020-07-29 04:00] VITALS: BP 133/82
[2020-07-29 09:12] VITALS: BP 153/86
[2020-07-29 13:46] VITALS: BP 155/73
--- NOTE | 2020-07-29 14:18 | NUR ---
PATIENT INCONTINENT URINE AND STOOL, CLEANED AND LINEN CHANGED. REPOSITONED IN BED.
--- NOTE | 2020-07-29 14:58 | NUR ---
NUTRITION FOLLOW UP: COMMENTS: Patient in bed during visit. TF running at goal rate of 50 cc/hr and water flushes were running at 30 cc/hr. DIET: Glucerna 1.5 @ 50 cc/hr; water flushes @ 30 cc/hr TF PROVIDES: 1800 kcal and 99 g protein Weight: 07/24- 145 lbs BM: x 2 on 07/29 SIG MEDS: Lantus, Probiotic, Humulin IV Fluids: NS @ 50 cc/hr SIG LABS: Na-146(H), Cl-110(H), BUN-19(H) POC Glucose- 237,163,134,258,283,226 RECOMMENDATIONS: Continue TF @ 50 cc/hr Continue Water fluses @ 30 cc/hr Elevate HOB Okay to hold TF if residuals become >[address] to follow up on 08/02
--- NOTE | 2020-07-29 16:20 | MORECARE ---
CASE MANAGEMENT DISCHARGE SUMMARY PATIENT: RICHARD ANDINO UNIT: [id number] ADM DATE: 07/23/20 AGE: 60 : 56 SEX: F ROOM/BED: D.2239 AUTHOR: MIRNA OBANDO PHYSICIAN: REFERRING PHYSICIAN: WYATT CHANG MD DATE OF SERVICE: 07/29/20 Case Management Discharge Planning Summary COMMENTS ENTERED DATE: 07/29/20 16:15 CT COMMENT TYPE: Discharge Planning REVIEWER: Johnna Young PATIENT IS A SENIOR LIVING RESIDENT AT [facility]. PLAN IS FOR HER TO RETURN THERE WHEN MEDICALLY STABLE. ANTICIPATE DC BACK TO NURSING FACILITY SOON. CM TO FOLLOW AND ASSIST NEEDED. DCP REVIEW SUMMARY ANTICIPATED D/C DATE: EXPECTED LOS : CASE STATUS: DCP Initiated INITIAL REVIEW: 07/23/2020 INITIAL REVIEWER: Johnna Young FINAL DISCHARGE DISPOSITION: : FINAL REVIEWER: FINAL REVIEW DATE: DCP Focus Questions & Answers DCP Screen QUESTION: ANSWER High Risk Factors: : Polypharmacy (greater than 10 meds) DCP Evaluation QUESTION: ANSWER Family / Caregiver's ability to cope with chronic illness: : a. Adequate (ability to meet patient's medical needs, ensures patient attends medical appts.) Patient's current cognitive status: : Confused Patient's ability to cope with chronic illness : a. Adequate (0-3 ED visits in 6 mos., adequate financial resources, attends scheduled appts.) Does the patient have the ability to pay for or attain post discharge needs / services? : Yes Functional screen assessment: : Unable to manage ADLs without immediate ongoing assistance Physical Status: : Total care dependent Physical Status: : Speech impaired Physical Status: : Partial care dependence Physical Status: : Mobility impaired Physical Status: : Compromised skin integrity Physical Status: : Compromised nutritional status Is there a likelihood that the patient will require additional services to return to the preadmission environment? : No Living Arrangements: : Other Partial Dependence, assistance required for: : Eating Partial Dependence, assistance required for: : Dressing Partial Dependence, assistance required for: : Bathing Partial Dependence, assistance required for: : Ambulation / Mobility Patient with capacity for self-care or can be cared for in same environment as prior to hospitalization? : Yes Living arrangements comments: : [facility] Baseline cognitive status: : Confused Preadmission facility can/cannot provide post hospital level of care needs: : Can - at same level of care as preadmission Medication Management: : Evidence of Polypharmacy (greater than 10 meds) Pharmacy name(s): : [facility] Would patient like to participate in any Care Coordination programs (if applicable): : Not applicable Mental health screen: : No mental health history DCP Re-evaluation QUESTION: ANSWER Would patient like to participate in any Care Coordination programs (if applicable): : Not applicable PATIENT: RICHARD ANDINO ENCOUNTER: [id number] MEDICAL RECORD#: [id number] ADMISSION DATE: 07/23/2020 DISCHARGE DATE: ATTENDING MD: WYATT HAMILTON : AGE: 60 MARITAL STATUS: S DC PLAN ID: [id number] FACILITY: [facility] PRINTED ON: 07/29/20 16:20 CT All edits/amendments must be made on the electronic document DICTATION DATE: 07/29/201619 PAYROLL AND BENEFITS MANAGER: LASHONDA 07/29/201619 RPT#: [id number] DC DATE: STATUS: ADM IN [facility] [address] [place] [address] END OF REPORT
--- NOTE | 2020-07-29 16:40 | NUR ---
OT NOTE: (AM) PT COMPLETED BUE AAROM TOLERATED. PT COMPLETED BUE POSITIONING WITH MOD A. PT COMPLETED GRASP AND RELEASE ACTIVITIES FOR INCREASED I WITH ADLS. (PM) PT REQUIRED MAX A FOR ORAL CARE WITH TOOTHETTE. PT REQUIRED MOD A FOR FACE HYGIENE. PT IS SWEET AND COOPERATIVE. [phone] SYDNIE CAMEJO COTA
[2020-07-29 17:33] VITALS: BP 155/70
--- NOTE | 2020-07-29 18:33 | NUR ---
PATIENT INCONTINENT LARGE AMOUNT OF URINE, CLEANED AND LINENS CHANGED. PATIENT TURNED AND REPOSITIONED IN BED.
[2020-07-29] MEDS ORDERED: LANTUS INS100 UNITS/ SC (23:48)
[2020-07-30] MEDS ORDERED: CIPRO500 MG PO (00:01)
--- NOTE | 2020-07-30 08:51 | NUR ---
REPORT GIVEN TO LAURO AT [facility].
[2020-07-30 10:42] VITALS: BP 94/65
--- NOTE | 2020-07-30 11:55 | MORECARE ---
CASE MANAGEMENT DISCHARGE SUMMARY PATIENT: RICHARD ANDINO UNIT: [id number] ADM DATE: 07/23/20 AGE: 60 : 56 SEX: F ROOM/BED: D.2239 AUTHOR: TOPHER,DOC PHYSICIAN: REFERRING PHYSICIAN: WYATT CHANG MD DATE OF SERVICE: 07/30/20 Case Management Discharge Planning Summary COMMENTS ENTERED DATE: 07/30/20 11:47 CT COMMENT TYPE: Discharge Planning REVIEWER: Johnna Young RN has called report to [facility]. Patient will be transported back by ambulance. CM to follow and assist as needed. 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 PLAN IS FOR HER TO RETURN THERE WHEN MEDICALLY STABLE. ANTICIPATE DC BACK TO NURSING FACILITY SOON. CM TO FOLLOW AND ASSIST NEEDED. DCP REVIEW SUMMARY ANTICIPATED D/C DATE: EXPECTED LOS : CASE STATUS: DCP Initiated INITIAL REVIEW: 07/23/2020 INITIAL REVIEWER: Johnna Young FINAL DISCHARGE DISPOSITION: : FINAL REVIEWER: FINAL REVIEW DATE: DCP Focus Questions & Answers DCP Screen QUESTION: ANSWER High Risk Factors: : Polypharmacy (greater than 10 meds) DCP Evaluation QUESTION: ANSWER Family / Caregiver's ability to cope with chronic illness: : a. Adequate (ability to meet patient's medical needs, ensures patient attends medical appts.) Patient's ability to cope with chronic illness : a. Adequate (0-3 ED visits in 6 mos., adequate financial resources, attends scheduled appts.) Patient's current cognitive status: : Confused Physical Status: : Compromised nutritional status Physical Status: : Compromised skin integrity Physical Status: : Mobility impaired Physical Status: : Partial care dependence Physical Status: : Speech impaired Physical Status: : Total care dependent Functional screen assessment: : Unable to manage ADLs without immediate ongoing assistance Does the patient have the ability to pay for or attain post discharge needs / services? : Yes Partial Dependence, assistance required for: : Ambulation / Mobility Partial Dependence, assistance required for: : Bathing Partial Dependence, assistance required for: : Dressing Partial Dependence, assistance required for: : Eating Living Arrangements: : Other Is there a likelihood that the patient will require additional services to return to the preadmission environment? : No Living arrangements comments: : [facility] Baseline cognitive status: : Confused Patient with capacity for self-care or can be cared for in same environment as prior to hospitalization? : Yes Preadmission facility can/cannot provide post hospital level of care needs: : Can - at same level of care as preadmission Medication Management: : Evidence of Polypharmacy (greater than 10 meds) Pharmacy name(s): : [facility] Would patient like to participate in any Care Coordination programs (if applicable): : Not applicable Mental health screen: : No mental health history DCP Re-evaluation QUESTION: ANSWER Would patient like to participate in any Care Coordination programs (if applicable): : Not applicable PATIENT: RICHARD ANDINO ENCOUNTER: [id number] MEDICAL RECORD#: [id number] ADMISSION DATE: 07/23/2020 DISCHARGE DATE: ATTENDING MD: WYATT HAMILTON : AGE: 60 MARITAL STATUS: S DC PLAN ID: [id number] FACILITY: [facility] PRINTED ON: 07/30/20 11:55 CT All edits/amendments must be made on the electronic document DICTATION DATE: 07/30/201154 CHECKROOM ATTENDANT: LASHONDA 07/30/201154 RPT#: [id number] DC DATE: STATUS: ADM IN [facility] [address] [place] [address] END OF REPORT
--- NOTE | 2020-07-30 12:54 | NUR ---
DISCHARGE DONE BY ZORA MICHELLE RN AND AMBULANCE CALLED. IV D/C'D TIP INTACT.
[2020-07-30 13:29] VITALS: BP 124/73
--- NOTE | 2020-07-30 15:00 | NUR ---
OT NOTE: PT COMPLETED BUE AAROM TOLERTED. PT COMPLETED POSITIONING OF LE FOR DECREASED AREAS OF PRESSURE WITH TOTAL A. PT COMPLETED ORAL HYGIENE WITH TOTAL A WITH TOOTHETTE. [id number] SYDNIE CAMEJO COTA
--- NOTE | 2020-08-02 13:20 | MORECARE ---
CASE MANAGEMENT DISCHARGE SUMMARY PATIENT: RICHARD ANDINO UNIT: [id number] ADM DATE: 07/23/20 AGE: 60 : 56 SEX: F ROOM/BED: D.2239 AUTHOR: TOPHER,DOC PHYSICIAN: REFERRING PHYSICIAN: WYATT CHNAG MD DATE OF SERVICE: 08/02/20 Case Management Discharge Planning Summary COMMENTS ENTERED DATE: 07/30/20 11:47 CT COMMENT TYPE: Discharge Planning REVIEWER: Johnna Young RN has called report to [facility]. Patient will be transported back by ambulance. CM to follow and assist as needed. 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 PLAN IS FOR HER TO RETURN THERE WHEN MEDICALLY STABLE. ANTICIPATE DC BACK TO NURSING FACILITY SOON. CM TO FOLLOW AND ASSIST NEEDED. DCP REVIEW SUMMARY ANTICIPATED D/C DATE: EXPECTED LOS : CASE STATUS: DCP Initiated INITIAL REVIEW: 07/23/2020 INITIAL REVIEWER: Johnna Young FINAL DISCHARGE DISPOSITION: : FINAL REVIEWER: FINAL REVIEW DATE: DCP Focus Questions & Answers DCP Screen QUESTION: ANSWER High Risk Factors: : Polypharmacy (greater than 10 meds) DCP Evaluation QUESTION: ANSWER Patient's current cognitive status: : Confused Patient's ability to cope with chronic illness : a. Adequate (0-3 ED visits in 6 mos., adequate financial resources, attends scheduled appts.) Family / Caregiver's ability to cope with chronic illness: : a. Adequate (ability to meet patient's medical needs, ensures patient attends medical appts.) Functional screen assessment: : Unable to manage ADLs without immediate ongoing assistance Physical Status: : Compromised nutritional status Physical Status: : Compromised skin integrity Physical Status: : Mobility impaired Physical Status: : Partial care dependence Physical Status: : Speech impaired Physical Status: : Total care dependent Does the patient have the ability to pay for or attain post discharge needs / services? : Yes Partial Dependence, assistance required for: : Ambulation / Mobility Partial Dependence, assistance required for: : Bathing Partial Dependence, assistance required for: : Dressing Partial Dependence, assistance required for: : Eating Is there a likelihood that the patient will require additional services to return to the preadmission environment? : No Living Arrangements: : Other Baseline cognitive status: : Confused Patient with capacity for self-care or can be cared for in same environment as prior to hospitalization? : Yes Living arrangements comments: : [facility] Preadmission facility can/cannot provide post hospital level of care needs: : Can - at same level of care as preadmission Medication Management: : Evidence of Polypharmacy (greater than 10 meds) Pharmacy name(s): : [facility] Would patient like to participate in any Care Coordination programs (if applicable): : Not applicable Mental health screen: : No mental health history DCP Re-evaluation QUESTION: ANSWER Would patient like to participate in any Care Coordination programs (if applicable): : Not applicable PATIENT: RICHARD ANDINO ENCOUNTER: [id number] MEDICAL RECORD#: [id number] ADMISSION DATE: 07/23/2020 DISCHARGE DATE: 07/30/2020 ATTENDING MD: WYATT HAMILTON : AGE: 60 MARITAL STATUS: S DC PLAN ID: [id number] FACILITY: [facility] PRINTED ON: 08/02/20 13:19 CT All edits/amendments must be made on the electronic document DICTATION DATE: 08/02/201318 MERGERS AND ACQUISITIONS ASSOCIATE: LASHONDA 08/02/201318 RPT#: [id number] DC DATE:07/30/20 STATUS: DIS IN [facility] [address] [place] [address] END OF REPORT
--- NOTE | 2020-08-02 17:02 | MORECARE ---
CASE MANAGEMENT DISCHARGE SUMMARY PATIENT: RICHARD ANDINO UNIT: [id number] ADM DATE: 07/23/20 AGE: 60 : 56 SEX: F ROOM/BED: D.2239 AUTHOR: TOPHER,DOC PHYSICIAN: REFERRING PHYSICIAN: WYATT CHANG MD DATE OF SERVICE: 08/02/20 Case Management Discharge Planning Summary COMMENTS ENTERED DATE: 07/30/20 11:47 CT COMMENT TYPE: Discharge Planning REVIEWER: Johnna Young RN has called report to [facility]. Patient will be transported back by ambulance. CM to follow and assist as needed. 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 PLAN IS FOR HER TO RETURN THERE WHEN MEDICALLY STABLE. ANTICIPATE DC BACK TO NURSING FACILITY SOON. CM TO FOLLOW AND ASSIST NEEDED. DCP REVIEW SUMMARY ANTICIPATED D/C DATE: EXPECTED LOS : CASE STATUS: DCP Initiated INITIAL REVIEW: 07/23/2020 INITIAL REVIEWER: Johnna Young FINAL DISCHARGE DISPOSITION: : FINAL REVIEWER: FINAL REVIEW DATE: DCP Focus Questions & Answers DCP Screen QUESTION: ANSWER High Risk Factors: : Polypharmacy (greater than 10 meds) DCP Evaluation QUESTION: ANSWER Patient's current cognitive status: : Confused Patient's ability to cope with chronic illness : a. Adequate (0-3 ED visits in 6 mos., adequate financial resources, attends scheduled appts.) Family / Caregiver's ability to cope with chronic illness: : a. Adequate (ability to meet patient's medical needs, ensures patient attends medical appts.) Functional screen assessment: : Unable to manage ADLs without immediate ongoing assistance Physical Status: : Compromised nutritional status Physical Status: : Compromised skin integrity Physical Status: : Mobility impaired Physical Status: : Partial care dependence Physical Status: : Speech impaired Physical Status: : Total care dependent Does the patient have the ability to pay for or attain post discharge needs / services? : Yes Partial Dependence, assistance required for: : Ambulation / Mobility Partial Dependence, assistance required for: : Bathing Partial Dependence, assistance required for: : Dressing Partial Dependence, assistance required for: : Eating Is there a likelihood that the patient will require additional services to return to the preadmission environment? : No Living Arrangements: : Other Baseline cognitive status: : Confused Patient with capacity for self-care or can be cared for in same environment as prior to hospitalization? : Yes Living arrangements comments: : [facility] Preadmission facility can/cannot provide post hospital level of care needs: : Can - at same level of care as preadmission Medication Management: : Evidence of Polypharmacy (greater than 10 meds) Pharmacy name(s): : [facility] Would patient like to participate in any Care Coordination programs (if applicable): : Not applicable Mental health screen: : No mental health history DCP Re-evaluation QUESTION: ANSWER Would patient like to participate in any Care Coordination programs (if applicable): : Not applicable PATIENT: RICHARD ANDINO ENCOUNTER: [id number] MEDICAL RECORD#: [id number] ADMISSION DATE: 07/23/2020 DISCHARGE DATE: 07/30/2020 ATTENDING MD: WYATT HAMILTON : AGE: 60 MARITAL STATUS: S DC PLAN ID: [id number] FACILITY: [facility] PRINTED ON: 08/02/20 17:02 CT All edits/amendments must be made on the electronic document DICTATION DATE: 08/02/201701 BIOINFORMATICS ASSISTANT: LASHONDA 08/02/201701 RPT#: [id number] DC DATE:07/30/20 STATUS: DIS IN [facility] [address] [place] [address] END OF REPORT
== END 2020-07-30 14:57 | DRG 689 ==
LOC: D.ER 13:02 → D.MS 14:59
PROVIDERS: Emergency Medicine; Family Medicine; ADMIT Legal Medicine; ATTEND Legal Medicine
DX: N39.0 Urinary tract infection, site not specified (principal); G93.41 Metabolic encephalopathy; E87.0 Hyperosmolality and hypernatremia; E86.0 Dehydration; I10 Essential (primary) hypertension; E11.65 Type 2 diabetes mellitus with hyperglycemia; Z86.73 Personal history of transient ischemic attack (TIA), and cerebral infarction without residual deficits; R26.9 Unspecified abnormalities of gait and mobility